=== PATIENT | female | born 1985 | race Caucasian/White ===

== ENCOUNTER 2019-11-12 22:25 | Emergency (ER) | payer SELFPAY ==
[~2019-11-12] VITALS: Ht 157.5 cm; Wt 72.1 kg
[2019-11-12 22:32] VITALS: BP 142/87
--- NOTE | 2019-11-12 22:39 | NUR ---
PT AMBULATED TO [facility] OT A/W BED
--- NOTE | 2019-11-12 22:48 | NUR ---
PT TAKEN TO BED 2
[2019-11-12] MEDS ORDERED: ONDANSETRON 4 MG/2 ML VIAL IVP ONE (23:00)
[2019-11-12] MEDS ORDERED: KETOROLAC 30 MG/ML VIAL IVP ONE (23:00)
[2019-11-13 00:06] LABS: ANION GAP 12.2 (8-16); CREATININE 0.6 mg/dL (0.6-1.3); POTASSIUM 3.2 mmol/L (3.5-5.1); TOTAL BILIRUBIN 0.5 mg/dL (0.0-1.0)
[2019-11-13 00:35] VITALS: BP 142/87
--- NOTE | 2019-11-13 00:35 | NUR ---
Patient discharged with v/s stable. Written and verbal after care instructions given and explained. Patient verbalized understanding. Ambulatory with steady gait. All questions addressed prior to discharge. Advised to follow up with PMD. PT STATED SHE HAD NO PAIN 0/10 PRIOR TO D/C.
== END 2019-11-13 00:35 | disposition home or self-care (01) ==
LOC: MED 22:25
DX: G44.209 Tension-type headache, unspecified, not intractable (principal); E07.9 Disorder of thyroid, unspecified; Z90.49 Acquired absence of other specified parts of digestive tract
CPT/HCPCS: 36415; 80053; 96374; 96375; 99284; J1885; J2405

== ENCOUNTER 2020-06-01 20:32 | Emergency (ER) | payer SELFPAY ==
[~2020-06-01] VITALS: Ht 157.5 cm; Wt 74.8 kg
[2020-06-01 20:48] VITALS: BP 128/77
--- NOTE | 2020-06-01 20:56 | NUR ---
PT AMBULATED TO ER BED # 5 W/ STEADY GAIT.
--- NOTE | 2020-06-01 21:23 | NUR ---
34 Y/O FEMALE BIB WITH C/O HEADACHE X 3 DAYS. 10/10 PAIN. HEADACHE IS EXACERBATED BY LIGHT, AND SOUND. PERRLA. STEADY GAIT. A&O X4 DENIES TRAUMA, OR INJURY TO HEAD, NAUSEA, VOMITING, DIARRHEA, CHILLS, SOB, FEVER, COUGH. PAIN DOESN'T RADIATE TO ANY OTHER AREA OF BODY. LMP X 1 WEEK. VSS, R/R EQUAL, AND UNLABORED. AT BEDSIDE, PT LAYING IN QUIETLY IN BED. WILL CONTINUE TO MONITOR. NKDA PMH: THYROID DISEASE
--- NOTE | 2020-06-01 22:25 | NUR ---
ERMD AT BEDSIDE.
[2020-06-01] MEDS ORDERED: NACL 0.9% 1,000 ML IV ONE (22:32)
[2020-06-01] MEDS ORDERED: METOCLOPRAMIDE 10 MG/2 ML INJ VIAL IVP ONE (22:35)
[2020-06-01] MEDS ORDERED: KETOROLAC 30 MG/ML VIAL IVP ONE (22:35)
[2020-06-01] MEDS ORDERED: diphenhydrAMINE 50 MG/ML VIAL IVP ONE (22:35)
[2020-06-02 00:16] VITALS: BP 128/77
--- NOTE | 2020-06-02 00:16 | NUR ---
Patient discharged with v/s stable. Written and verbal after care instructions given and explained. Patient alert, oriented and verbalized understanding of instructions. Ambulatory with steady gait. All questions addressed prior to discharge. ID band removed. Patient advised to follow up with PMD. Rx of FIORICET given. Patient educated on indication of medication including possible reaction and side effects. Opportunity to ask questions provided and answered.
== END 2020-06-02 00:16 | disposition home or self-care (01) ==
LOC: MED 20:32
DX: R51 Headache (principal); E03.9 Hypothyroidism, unspecified
CPT/HCPCS: 96361; 96374; 96375; 99284; J1200; J1885; J2765; J7030